=== PATIENT | female | born 1980 | race Caucasian/White ===

== ENCOUNTER 2018-12-04 19:41 | Emergency (ER) | payer OTHER ==
[~2018-12-04] VITALS: Ht 167.6 cm; Wt 65.8 kg
[2018-12-04] MEDS ORDERED: PRENATABS FA T1 EACH (19:49)
== END 2018-12-04 21:34 | disposition home or self-care (01) ==
LOC: ER 19:41
DX: O20.0 Threatened abortion (principal)